=== PATIENT | male | born 1940 | race African-American/Black ===

== ENCOUNTER 2018-07-31 13:22 | Inpatient (IN) ==
[2018-07-31 14:52] LABS: Basophils % 0.5 % (0.0-0.8); Eosinophils # 0.2 10*3/uL (0.0-0.87); Eosinophils % 2.4 % (0.00-10.9); Hematocrit 36.2 VOL% (42.0-52.0); Hemoglobin 11.2 GM/DL (14.0-18.0); Immature Granulocytes % 0.3 %; Immature Granulocytes Absolute 0.02 #; Lymphocytes # 1.4 10*3/uL (1.4-4.0); Mean Corpuscular HGB Conc 30.9 GM/DL (32-36); Mean Corpuscular Hemoglobin 26 PG (27-34); Mean Corpuscular Volume 83.4 FL (87-102); Mean Platelet Volume 8.9 FL (9.6-12.0); Monocytes # 0.5 10*3/uL (0.11-0.8); Neutrophils # 4.1 10*3/uL (1.4-7.4); Neutrophils % 66.8 % (38.7-73.9); Platelet Count 365 T/CUMM (130-400); Red Blood Count 4.34 MC/CUMM (3.8-5.5); Red Cell Distribution Width 20.6 % (9.3-17.3); White Blood Count 6.1 T/CUMM (4-12)
[2018-07-31 15:14] LABS: Alanine Aminotransferase 13 U/L (16-61); Albumin 3.7 G/DL (3.4-5.0); Alkaline Phosphatase 81 U/L (45-117); Aspartate Amino Transferase 9 U/L (0-37); Bilirubin,Total < 0.39 MG/DL (0.2-1.0); Blood Urea Nitrogen 19 MG/DL (7-18); Glucose 115 MG/DL (74-106); Osmolality,Calculated 279.5 MOS/KG (273-304); Potassium 4.6 MMOL/L (3.5-5.1); Sodium 139 MMOL/L (136-145); Total Protein 7.9 G/DL (6.4-8.3)
[2018-07-31] MEDS ORDERED: SODIUM CHLORIDE 0.9% 1,000 ML IV STA (15:24)
[2018-07-31] MEDS ORDERED: ONDANSETRON 4 MG/2 ML VIAL IV STA (15:24)
[2018-07-31] MEDS ORDERED: METOCLOPRAMIDE 10 MG/2 ML VIAL IV STA (15:24)
[2018-07-31] MEDS ORDERED: PANTOPRAZOLE 40 MG VIAL IV STA (15:24)
[2018-07-31 15:50] LABS: PT Patient Result 10.7 SECS; Partial Thromboplastin Time 27.8 SECS (0-40)
[2018-07-31 16:22] LABS: Troponin I < 0.015 NG/ML (0.00-0.045)
[2018-07-31] MEDS ORDERED: diphenhydrAMINE CAP 50 MG CAPSULE PO PRN (16:58)
[2018-07-31] MEDS ORDERED: PROMETHAZINE 25 MG TABLET PO PRN (16:58)
[2018-07-31] MEDS ORDERED: ONDANSETRON 4 MG/2 ML VIAL IV PRN (17:45)
[2018-07-31] MEDS ORDERED: diphenhydrAMINE CAP 25 MG CAPSULE PO PRN (17:45)
[2018-07-31] MEDS ORDERED: DEXTROSE 50% 25 GM/50 ML VIAL IV PRN (17:45)
[2018-07-31] MEDS ORDERED: GLUCAGON 1 MG VIAL IM PRN (17:45)
[2018-07-31] MEDS ORDERED: ACETAMINOPHEN 325 MG TABLET PO PRN (17:45)
[2018-07-31 18:19] LABS: Risk Ratio 2.54; Thyroid Stimulating Hormone 0.598 uIU/ml (0.358-3.74); VLDL CHOLESTEROL 16.2 MG/DL
[2018-07-31 20:27] LABS: Hematocrit 36.1 VOL% (42.0-52.0)
[2018-07-31] MEDS ORDERED: AMOXICILLIN/CLAV 875 MG TABLET PO SCH ×2 (21:00)
[2018-07-31] MEDS: SIMVASTATIN 40 MG TABLET PO SCH (22:00)
[2018-07-31] MEDS: FLUTICASONE 50 MCG NASAL SPRAY 16 GM BOTTLE BOTH NARES SCH (22:00)
[2018-07-31] MEDS: FERROUS SULFATE 325 MG TABLET PO SCH (22:00)
[2018-07-31] MEDS: PSEUDOEPHEDRINE 30 MG TABLET PO SCH (22:01)
[2018-07-31] MEDS: LEVOFLOXACIN INJ 500 MG in PREMIX 1 EACH IV SCH (22:01)
[2018-08-01 01:04] LABS: Basophils % 0.2 % (0.0-0.8); Eosinophils # 0.2 10*3/uL (0.0-0.87); Eosinophils % 2.8 % (0.00-10.9); Hematocrit 32.2 VOL% (42.0-52.0); Hemoglobin 9.9 GM/DL (14.0-18.0); Immature Granulocytes % 0.4 %; Immature Granulocytes Absolute 0.02 #; Lymphocytes # 1.4 10*3/uL (1.4-4.0); Lymphocytes % 23.8 % (21.2-54.2); Mean Corpuscular HGB Conc 30.7 GM/DL (32-36); Mean Corpuscular Hemoglobin 26 PG (27-34); Mean Corpuscular Volume 84.1 FL (87-102); Mean Platelet Volume 8.9 FL (9.6-12.0); Monocytes # 0.4 10*3/uL (0.11-0.8); Monocytes % 7.7 % (1.7-12.7); Neutrophils # 3.7 10*3/uL (1.4-7.4); Neutrophils % 65.1 % (38.7-73.9); Platelet Count 287 T/CUMM (130-400); Red Blood Count 3.83 MC/CUMM (3.8-5.5); Red Cell Distribution Width 20.9 % (9.3-17.3); White Blood Count 5.7 T/CUMM (4-12)
[2018-08-01 01:06] LABS: Albumin 3.2 G/DL (3.4-5.0); Bilirubin,Total 0.4 MG/DL (0.2-1.0); Calcium 8.5 MG/DL (8.5-10.1); Osmolality,Calculated 284.1 MOS/KG (273-304); Potassium 4.5 MMOL/L (3.5-5.1); Total Protein 6.9 G/DL (6.4-8.3)
[2018-08-01 06:14] LABS: Hematocrit 34.4 VOL% (42.0-52.0); Hemoglobin 10.2 GM/DL (14.0-18.0)
[2018-08-01] MEDS: PSEUDOEPHEDRINE 30 MG TABLET PO SCH ×2 (10:47→20:16)
[2018-08-01] MEDS: FLUTICASONE 50 MCG NASAL SPRAY 16 GM BOTTLE BOTH NARES SCH ×2 (10:47→20:16)
[2018-08-01] MEDS: FERROUS SULFATE 325 MG TABLET PO SCH ×2 (10:47→20:16)
[2018-08-01] MEDS: PANTOPRAZOLE 40 MG TABLET PO SCH (10:47)
[2018-08-01 12:22] LABS: Hemoglobin 9.9 GM/DL (14.0-18.0)
[2018-08-01 14:10] LABS: Apearance,Urine CLEAR (Clear); Bacteria,Urine Occasional /HPF (Few); Bilirubin,Urine Negative (Negative); Blood, Urine Large mg/dL (Negative); Glucose,Urine (UA) Negative (Negative); Ketones,Urine Negative (Negative); Mucus,Urine Occasional /LPF (Occasional); Nitrite,Urine Negative (Negative); Protein,Urine 30 MG/DL; RBC,Urine 111 /HPF (0-4); Squamous Epithelial Cell,Urine Occasional /HPF (0-10); Urine Color Yellow (Yellow); Urine Specific Gravity 1.014 (1.001-1.035); Urine Urobilinogen < 2.0 EU/DL (0.2-1.0); WBC,Urine 2 /HPF (0-6)
[2018-08-01] MEDS ORDERED: FAMOTIDINE 20 MG TABLET PO ONE (15:30)
[2018-08-01] MEDS: SODIUM CHLORIDE 0.65% NASAL SPRAY 45 ML BOTTLE BOTH NARES PRN (20:15)
[2018-08-01] MEDS: SIMVASTATIN 40 MG TABLET PO SCH (20:16)
[2018-08-01] MEDS: LEVOFLOXACIN INJ 500 MG in PREMIX 1 EACH IV SCH (20:16)
[2018-08-02 05:02] LABS: Basophils % 0.2 % (0.0-0.8); Eosinophils # 0.2 10*3/uL (0.0-0.87); Eosinophils % 4.9 % (0.00-10.9); Hematocrit 32.4 VOL% (42.0-52.0); Hemoglobin 10.1 GM/DL (14.0-18.0); Immature Granulocytes % 0.2 %; Immature Granulocytes Absolute 0.01 #; Lymphocytes # 1.2 10*3/uL (1.4-4.0); Lymphocytes % 27.5 % (21.2-54.2); Mean Corpuscular HGB Conc 31.2 GM/DL (32-36); Mean Corpuscular Hemoglobin 26 PG (27-34); Mean Corpuscular Volume 82.4 FL (87-102); Mean Platelet Volume 9.3 FL (9.6-12.0); Monocytes # 0.4 10*3/uL (0.11-0.8); Monocytes % 8.6 % (1.7-12.7); Neutrophils # 2.6 10*3/uL (1.4-7.4); Neutrophils % 58.6 % (38.7-73.9); Platelet Count 300 T/CUMM (130-400); Red Blood Count 3.93 MC/CUMM (3.8-5.5); White Blood Count 4.5 T/CUMM (4-12)
[2018-08-02 05:21] LABS: Albumin 3.2 G/DL (3.4-5.0); Bilirubin,Total 0.5 MG/DL (0.2-1.0); Calcium 8.6 MG/DL (8.5-10.1); Osmolality,Calculated 274.5 MOS/KG (273-304); Potassium 4.1 MMOL/L (3.5-5.1); Total Protein 6.8 G/DL (6.4-8.3)
[2018-08-02] MEDS: PANTOPRAZOLE 40 MG TABLET PO SCH (08:01)
[2018-08-02] MEDS: FLUTICASONE 50 MCG NASAL SPRAY 16 GM BOTTLE BOTH NARES SCH ×2 (08:01→21:06)
[2018-08-02] MEDS: PSEUDOEPHEDRINE 30 MG TABLET PO SCH ×3 (08:02→21:03)
[2018-08-02] MEDS: FERROUS SULFATE 325 MG TABLET PO SCH ×2 (08:02→21:03)
[2018-08-02] MEDS: PENICILLIN VK 500 MG TABLET PO SCH ×2 (11:42→21:05)
[2018-08-02] MEDS: SIMVASTATIN 40 MG TABLET PO SCH (21:03)
[2018-08-02] MEDS: PANTOPRAZOLE 40 MG VIAL IV SCH (21:03)
[2018-08-02] MEDS: traZODone 50 MG TABLET PO PRN (21:05)
[2018-08-02] MEDS: SODIUM CHLORIDE 0.65% NASAL SPRAY 45 ML BOTTLE BOTH NARES PRN (21:06)
[2018-08-03 06:13] LABS: Basophils % 0.5 % (0.0-0.8); Eosinophils # 0.2 10*3/uL (0.0-0.87); Eosinophils % 4.1 % (0.00-10.9); Hematocrit 33.7 VOL% (42.0-52.0); Hemoglobin 10.5 GM/DL (14.0-18.0); Immature Granulocytes % 0.2 %; Immature Granulocytes Absolute 0.01 #; Lymphocytes # 1.1 10*3/uL (1.4-4.0); Lymphocytes % 25.4 % (21.2-54.2); Mean Corpuscular HGB Conc 31.2 GM/DL (32-36); Mean Corpuscular Hemoglobin 26 PG (27-34); Mean Platelet Volume 9.3 FL (9.6-12.0); Monocytes # 0.3 10*3/uL (0.11-0.8); Monocytes % 7.5 % (1.7-12.7); Neutrophils # 2.8 10*3/uL (1.4-7.4); Neutrophils % 62.3 % (38.7-73.9); Platelet Count 318 T/CUMM (130-400); Red Blood Count 4.11 MC/CUMM (3.8-5.5); Red Cell Distribution Width 19.9 % (9.3-17.3); White Blood Count 4.4 T/CUMM (4-12)
[2018-08-03] MEDS: PSEUDOEPHEDRINE 30 MG TABLET PO SCH ×3 (08:20→21:50)
[2018-08-03] MEDS: FERROUS SULFATE 325 MG TABLET PO SCH ×2 (08:20→21:50)
[2018-08-03] MEDS: PENICILLIN VK 500 MG TABLET PO SCH ×2 (08:20→21:50)
[2018-08-03] MEDS: SODIUM CHLORIDE 0.65% NASAL SPRAY 45 ML BOTTLE BOTH NARES PRN (08:21)
[2018-08-03] MEDS: PANTOPRAZOLE 40 MG VIAL IV SCH ×2 (08:21→21:50)
[2018-08-03] MEDS: FLUTICASONE 50 MCG NASAL SPRAY 16 GM BOTTLE BOTH NARES SCH ×2 (08:22→21:57)
[2018-08-03] MEDS ORDERED: BISACODYL 5 MG TABLET PO ONE (12:00)
[2018-08-03] MEDS ORDERED: POLYETHYLENE GLYCOL POWDER 255 GM BOTTLE PO ONE (18:00)
[2018-08-03] MEDS ORDERED: MAGNESIUM CITRATE 300 ML BOTTLE PO ONE (21:00)
[2018-08-03] MEDS: SIMVASTATIN 40 MG TABLET PO SCH (21:50)
[2018-08-04 07:10] LABS: Basophils % 0.4 % (0.0-0.8); Eosinophils # 0.2 10*3/uL (0.0-0.87); Eosinophils % 3.3 % (0.00-10.9); Hemoglobin 10.7 GM/DL (14.0-18.0); Immature Granulocytes % 0.4 %; Immature Granulocytes Absolute 0.02 #; Lymphocytes % 21.3 % (21.2-54.2); Mean Corpuscular HGB Conc 30.6 GM/DL (32-36); Mean Corpuscular Hemoglobin 26 PG (27-34); Mean Corpuscular Volume 83.9 FL (87-102); Mean Platelet Volume 9.2 FL (9.6-12.0); Monocytes # 0.4 10*3/uL (0.11-0.8); Monocytes % 7.6 % (1.7-12.7); Neutrophils # 3.1 10*3/uL (1.4-7.4); Platelet Count 302 T/CUMM (130-400); Red Blood Count 4.17 MC/CUMM (3.8-5.5); White Blood Count 4.6 T/CUMM (4-12)
[2018-08-04 07:16] LABS: PT Patient Result 10.7 SECS
[2018-08-04] MEDS: PSEUDOEPHEDRINE 30 MG TABLET PO SCH ×3 (09:00→21:07)
[2018-08-04] MEDS: PENICILLIN VK 500 MG TABLET PO SCH ×2 (09:00→21:07)
[2018-08-04] MEDS: PANTOPRAZOLE 40 MG VIAL IV SCH ×2 (09:30→21:08)
[2018-08-04] MEDS ORDERED: PROPOFOL 200 MG/20 ML VIAL IV ONE (10:00)
[2018-08-04] MEDS ORDERED: LIDOCAINE 2% 5 ML VIAL ONE (10:00)
[2018-08-04] MEDS: FERROUS SULFATE 325 MG TABLET PO SCH ×2 (16:45→21:07)
[2018-08-04] MEDS: FLUTICASONE 50 MCG NASAL SPRAY 16 GM BOTTLE BOTH NARES SCH (17:48)
[2018-08-04] MEDS: SIMVASTATIN 40 MG TABLET PO SCH (21:07)
[2018-08-05] MEDS: traZODone 50 MG TABLET PO PRN (02:47)
[2018-08-05] MEDS: FLUTICASONE 50 MCG NASAL SPRAY 16 GM BOTTLE BOTH NARES SCH ×2 (02:48→10:18)
[2018-08-05] MEDS: PENICILLIN VK 500 MG TABLET PO SCH (10:17)
[2018-08-05] MEDS: FERROUS SULFATE 325 MG TABLET PO SCH (10:17)
[2018-08-05] MEDS: PSEUDOEPHEDRINE 30 MG TABLET PO SCH (10:18)
[2018-08-05] MEDS: PANTOPRAZOLE 40 MG VIAL IV SCH (10:18)
[2018-08-05] MEDS ORDERED: INFLUENZA VIRUS VACCINE 0.5 ML SYRINGE IM ONE (10:25)
[2018-08-05] MEDS ORDERED: PNEUMOCOCCAL VACCINE (13 VALENT) 0.5 ML SYRINGE IM ONE (10:26)
[2018-08-05 14:41] VITALS: BP 138/70
== END 2018-08-05 14:47 | disposition home or self-care (01) | DRG 378 ==
LOC: N.ED 13:22 → N.EDINP 17:45 → SUATTDRO 17:45 → N.5E 18:49
PROVIDERS: ADMIT Internal Medicine; ATTEND Hospitalist